=== PATIENT | female | born 1935 | race Caucasian/White ===

== ENCOUNTER 2017-07-06 16:15 | Emergency (ER) | payer MEDICARE, MEDICAID ==
[~2017-07-06] VITALS: Ht 165.1 cm; Wt 80.7 kg
[~2017-07-06 16:15] MED LIST: AMLO1CAP10 PO; ESOM40CA PO; INSU3INS6 SUBCUT
[2017-07-06 16:21] VITALS: BP 147/72
[2017-07-06] MEDS ORDERED: CEFTRIAXONE 1 G VIAL ONE (17:00)
[2017-07-06] MEDS ORDERED: DEXAMETHASONE SOD PHOSPHATE 10 MG/ML VIAL ONE (17:00)
[2017-07-06] MEDS ORDERED: DEXAMETHASONE SOD PHOSPHATE 10 MG/ML VIAL IV ONE (17:00)
[2017-07-06] MEDS ORDERED: CEFTRIAXONE 1 G VIAL IM ONE (17:00)
[2017-07-06] MEDS ORDERED: LIDOCAINE /MPF 1% VIAL 5 ML VIAL ONE (17:01)
== END 2017-07-06 17:09 | disposition home or self-care (01) ==
LOC: ER 16:18
DX: J03.90 Acute tonsillitis, unspecified (principal); E11.9 Type 2 diabetes mellitus without complications; I10 Essential (primary) hypertension; Z79.4 Long term (current) use of insulin; Z86.73 Personal history of transient ischemic attack (TIA), and cerebral infarction without residual deficits
CPT/HCPCS: 96372 ×2; 99284; A4606; J0696; J1100; J3490; Z7610

== ENCOUNTER 2017-07-22 10:11 | Emergency (ER) | payer MEDICARE, MEDICAID ==
[~2017-07-22] VITALS: Ht 162.6 cm; Wt 74.8 kg
--- NOTE | 2017-07-22 10:15 | NUR ---
AAOX3, BIB FAMILY C/O FEELING SICK, ON/OFF SOB ESPECIALLY DURING NIGHT TIME, FINISHED HER ANTIBIOTIC 3 DAYS AGO. RR IS EVEN AND UNLABORED WITH NAD NOTED. SKIN IS WARM AND DRY. AWAITING MD FOR EVAL.
--- NOTE | 2017-07-22 10:21 | NUR ---
DR MCCORMACK AT BS FOR EVAL.
[2017-07-22] MEDS ORDERED: DEXAMETHASONE SOD PHOSPHATE 10 MG/ML VIAL ONE (10:25)
[2017-07-22] MEDS ORDERED: IV NS 0.9% 500 ML BAG IV ONE (10:30)
[2017-07-22] MEDS ORDERED: DEXAMETHASONE SOD PHOSPHATE 10 MG/ML VIAL IV ONE (10:30)
[2017-07-22 10:43] LABS: BASOPHILS % (AUTO) 0.3 % (0.0-2.0); EOSINOPHILS # (AUTO) 0.3 /CMM (0.0-0.7); EOSINOPHILS % (AUTO) 3.2 % (0.0-6.0); HEMATOCRIT 39 % (33-45); HEMOGLOBIN 12.9 g/dL (11.5-14.8); LYMPHOCYTES # (AUTO) 2.1 /CMM (0.8-4.8); LYMPHOCYTES % (AUTO) 23.7 % (20.0-44.0); MEAN CORPUSCULAR HEMOGLOBIN 29 PG (26.0-33.0); MEAN CORPUSCULAR HGB CONC 34 g/dl (31.0-36.0); MEAN CORPUSCULAR VOLUME 86 fL (82-100); MONOCYTES # (AUTO) 0.6 /CMM (0.1-1.30); MONOCYTES % (AUTO) 7.1 % (2.0-12.0); NEUTROPHILS # (AUTO) 5.7 /CMM (1.8-8.9); NEUTROPHILS % (AUTO) 65.7 % (43.0-81.0); PLATELET COUNT (AUTO) 241 /CMM (150-450); RDW COEFFICIENT OF VARIATION 13.5 (11.5-15.0); RED BLOOD CELL COUNT(AUTO) 4.48 MIL/uL (4.0-5.2); WHITE BLOOD COUNT (AUTO) 8.7 K/uL (4.3-11.0)
[2017-07-22 10:47] LABS: APPEARANCE,URINE CLEAR (CLEAR); BILIRUBIN,URINE NEGATIVE (NEGATIVE); BLOOD, URINE TRACE-INTA Ery/uL (NEGATIVE); COLOR,URINE YELLOW (YELLOW); KETONES,URINE NEGATIVE (NEGATIVE); LEUKOCYTE ESTERASE ,URINE NEGATIVE (NEGATIVE); NITRITE, URINE NEGATIVE (NEGATIVE); PROTEIN,URINE 2+ mg/dl (NEGATIVE); UGLUCOSE TRACE mg/dL (NEGATIVE); UROBILINOGEN,URINE 0.2 EU/dL (0.2)
--- NOTE | 2017-07-22 10:51 | NUR ---
XRAY AT BS
[2017-07-22 10:53] LABS: CARBON DIOXIDE 30 mmol/L (21-32); CHLORIDE 101 mmol/L (98-107); CREATININE 0.9 mg/dL (0.6-1.3); GLUCOSE 194 mg/dL (74-106); POTASSIUM 3.5 mmol/L (3.5-5.1); SODIUM SERUM 140 mmol/L (136-145); UREA NITROGEN, BLOOD 14 mg/dL (7-18)
[2017-07-22 11:03] LABS: ALANINE AMINOTRANSFERASE 20 U/L (12-78); ALBUMIN 3.1 g/dL (3.4-5.0); ALKALINE PHOSPHATASE 80 U/L (46-116); ASPARTATE AMINOTRANSFERASE 17 U/L (15-37); BILIRUBIN,DIRECT 0.1 mg/dL (0.0-0.2); BILIRUBIN,TOTAL 0.6 mg/dL (0.2-1.0); LIPASE 82 U/L (73-393); TOTAL PROTEIN, SERUM 8.9 g/dL (6.4-8.2)
[2017-07-22 11:11] LABS: TROPONIN I < 0.017 ng/mL (0.00-0.056)
[2017-07-22 11:21] LABS: RBC,URINE 0-2 /HPF (0-2)
[2017-07-22 11:22] LABS: BACTERIA,URINE Rare /HPF (None Seen); SQUAMOUS EPITHELIAL CELL,UR Few /HPF (None Seen); YEAST,URINE Rare /HPF (None Seen)
[2017-07-22] MEDS ORDERED: AZITHROMYCIN 250 MG TABLET ONE (11:28)
[2017-07-22] MEDS ORDERED: AZITHROMYCIN 250 MG TABLET PO ONE (11:30)
--- NOTE | 2017-07-22 11:32 | NUR ---
IV removed. Catheter intact and site benign. Pressure and 4x4 applied to site. No bleeding noted.Patient discharged to home in stable condition. Written and verbal after care instructions given. Patient verbalizes understanding of instruction.
[2017-07-22 11:33] VITALS: BP 132/85
== END 2017-07-22 11:34 | disposition home or self-care (01) ==
LOC: ER 10:14
DX: R09.89 Other specified symptoms and signs involving the circulatory and respiratory systems (principal); R53.1 Weakness; I10 Essential (primary) hypertension; E11.9 Type 2 diabetes mellitus without complications; Z86.73 Personal history of transient ischemic attack (TIA), and cerebral infarction without residual deficits; Z79.4 Long term (current) use of insulin
CPT/HCPCS: 36415; 71045; 80048; 80076; 81001; 83690; 84484; 85025; 93005; 96374; 99285; A4606; J1100; J7040; 81000-TC; Z7610

== ENCOUNTER 2017-08-08 11:01 | Inpatient (IN) | payer MEDICARE, MEDICAID ==
[~2017-08-08] VITALS: Ht 154.9 cm; Wt 77.1 kg
--- NOTE | 2017-08-08 11:01 | NUR ---
BB RA102 FROM HOME C/O SEVERE APHASIA LAST KNOWN WELL 1010 AM. BS 317 IN FIELD. PLACED ON MONITOR. AWAITING MD ORDER
--- NOTE | 2017-08-08 11:07 | NUR ---
CODE STROKE ACTIVATED
--- NOTE | 2017-08-08 11:08 | NUR ---
PT TAKEN TO CT SCAN
--- NOTE | 2017-08-08 11:09 | NUR ---
CALLED [facility]'S TELESTROKE HOTLINE, SPOKE WITH PATRIZIA, PRESENTED PT, AWAITING CALLBACK FROM (NEUROLOGIST).
[2017-08-08 11:13] LABS: BASOPHILS # (AUTO) 0.3 /CMM (0.0-0.2); BASOPHILS % (AUTO) 3.6 % (0.0-2.0); EOSINOPHILS # (AUTO) 0.3 /CMM (0.0-0.7); EOSINOPHILS % (AUTO) 2.9 % (0.0-6.0); HEMATOCRIT 41 % (33-45); LYMPHOCYTES # (AUTO) 2.1 /CMM (0.8-4.8); LYMPHOCYTES % (AUTO) 22.7 % (20.0-44.0); MEAN CORPUSCULAR HEMOGLOBIN 29 PG (26.0-33.0); MEAN CORPUSCULAR HGB CONC 34 g/dl (31.0-36.0); MEAN CORPUSCULAR VOLUME 85 fL (82-100); MONOCYTES # (AUTO) 0.6 /CMM (0.1-1.30); MONOCYTES % (AUTO) 6.5 % (2.0-12.0); NEUTROPHILS # (AUTO) 5.8 /CMM (1.8-8.9); NEUTROPHILS % (AUTO) 64.3 % (43.0-81.0); PLATELET COUNT (AUTO) 209 /CMM (150-450); RDW COEFFICIENT OF VARIATION 12.7 (11.5-15.0); RED BLOOD CELL COUNT(AUTO) 4.83 MIL/uL (4.0-5.2); WHITE BLOOD COUNT (AUTO) 9.1 K/uL (4.3-11.0)
--- NOTE | 2017-08-08 11:13 | NUR ---
PT BACK FROM CT
[2017-08-08] MEDS ORDERED: IV NS 0.9% 250 ML IV ONE (11:17)
[2017-08-08] MEDS ORDERED: CT SWABBABLE VALVE TRANS SET 1 EA INFUS.SET MC ONE (11:17)
[2017-08-08] MEDS ORDERED: IOHEXOL-350 100 ML VIAL IV ONE (11:17)
[2017-08-08 11:22] LABS: CALCIUM, SERUM 9.1 mg/dL (8.5-10.1); CARBON DIOXIDE 29 mmol/L (21-32); CHLORIDE 100 mmol/L (98-107); CREATININE 1.1 mg/dL (0.6-1.3); GLUCOSE 335 mg/dL (74-106); POTASSIUM 3.9 mmol/L (3.5-5.1); SODIUM SERUM 137 mmol/L (136-145); UREA NITROGEN, BLOOD 17 mg/dL (7-18)
[2017-08-08 11:26] LABS: INR 0.95 (0.85-1.15)
[2017-08-08 11:30] LABS: CHOLESTEROL 167 mg/dL (<200); HDL CHOLESTEROL 47 mg/dL (40-60); LDL 98 mg/dL (0-99); TRIGLYCERIDES 224 mg/dL (30-150)
[2017-08-08] MEDS ORDERED: ALTEPLASE 100 MG/VIAL VIAL IV ONE (11:30)
[2017-08-08 11:38] LABS: TROPONIN I < 0.017 ng/mL (0.00-0.056)
[2017-08-08] MEDS ORDERED: GLIM4TAB2 PO (11:53)
[2017-08-08] MEDS ORDERED: LEVO50TA8 PO (11:53)
[2017-08-08] MEDS ORDERED: CITA20TA11 PO (11:53)
[2017-08-08] MEDS ORDERED: ERGO500014 PO (11:53)
[2017-08-08] MEDS ORDERED: MECL-102 PO (11:53)
--- NOTE | 2017-08-08 11:58 | NUR ---
PAGED [facility] --- LIQUOR GALLERY OPERATOR IS DR GOSS.
[2017-08-08] MEDS ORDERED: METO-357 PO (12:15)
--- NOTE | 2017-08-08 12:37 | NUR ---
TELE 321-4
[2017-08-08] MEDS ORDERED: HYDROCODONE/APAP 5/325MG 1 EACH TABLET PO PRN (13:00)
[2017-08-08] MEDS ORDERED: ACETAMINOPHEN 325 MG TABLET PO PRN (13:00)
[2017-08-08] MEDS ORDERED: CITALOPRAM HYDROBROMIDE 20 MG TABLET PO PRN (13:00)
[2017-08-08] MEDS ORDERED: MAGNESIUM HYDROXIDE 30 ML UDC PO PRN (13:00)
[2017-08-08] MEDS ORDERED: MAG HYDROX/AL HYDROX/SIMETH 30 ML UDC PO PRN (13:00)
[2017-08-08] MEDS ORDERED: Z GUARD REMEDY 2 OZ OINT TP PRN (13:00)
[2017-08-08] MEDS ORDERED: MECLIZINE HCL 25 MG TABLET PO PRN (13:00)
[2017-08-08] MEDS ORDERED: ONDANSETRON HCL/PF 4 MG/2 ML VIAL IVP PRN (13:00)
[2017-08-08] MEDS ORDERED: ZOLPIDEM TARTRATE 5 MG TABLET PO PRN (13:00)
[2017-08-08 13:20] VITALS: BP 144/75
--- NOTE | 2017-08-08 13:20 | NUR ---
PATIENT ARRIVED TO UNIT AND PLACED IN ROOM 321-1 VITAL SIGNS WITHIN NORMAL LIMIT - REFER TO FLOWSHEET
[2017-08-08] MEDS: ASPIRIN EC 325 MG TABLET.DR PO SCH (13:23)
--- NOTE | 2017-08-08 15:32 | NUR ---
RN ADMITTING NOTES PATIENT ARRIVED TO UNIT, ROOM 321-1. VITAL SIGNS ARE STABLE. NPO EXCEPT MEDS. PLACED ON TELE MONITOR. FAMILY AT BEDSIDE. ARMENIA SPEAKING. ALERT AND ORIENTED TO NAME, PLACE AND TIME. NO SIGNS AND SYMPTOMS OF DISTRESS. DENIED PAIN. BED IN LOW POSITION, LOCKED AND TWO SIDE RAILS ARE UP. CALL LIGHT WITHIN REACH FOR SAFETY. WILL CONTINUE TO MONITOR AND ASSESS PATIENT
[2017-08-08 16:00] VITALS: BP 156/84
[2017-08-08] MEDS: INSULIN GLARGINE, 100 UNIT/ML CARTRIDGE SQ SCH (17:00)
[2017-08-08] MEDS: BLOOD SUGAR DIAGNOSTIC 1 EACH STRIP IN SCH ×3 (17:06→23:36)
--- NOTE | 2017-08-08 18:25 | NUR ---
RN CLOSING NOTES PATIENT IS IN BED, ALERT AND ORIENTED TO NAME, PLACE AND TIME. FIJIAN SPEAKING. NO SIGNS AND SYMPTOMS OF DISTRESS. PENDING DR MCMULLEN CONSULT. ALL NURSING CARE ANTICIPATED AND ATTENDED FOR. BED IN LOW POSITION, LOCKED AND TWO SIDE RAILS ARE UP FOR SAFETY. CALL LIGHT WITHIN REACH. NO CHANGES DURING THE SHIFT. WILL ENDORSE TO SILK OPENER NURSE.
--- NOTE | 2017-08-08 19:30 | NUR ---
SILVICULTURE FORESTER OPENING NOTES: PATIENT IN BED,AOX4, MOROCCAN SPEAKING, DAUGHTER AT BEDSIDE DURING THIS TIME OF ASSESSMENT TO HELP TRANSLATE. ON ROOM AIR, BREATHING EVEN AND UNLABORED. APPEARS CALM AND IN NO DISTRESS. DENIES PAIN AT THIS TIME. PATIENT'S PUPILS ARE EQUALLY ROUND AND REACTIVE TO LIGHT, FREDY EXTREMITIES BOTH WITH EQUAL STRENGTH, NO ARM DRIFT NOTED. NO OBVIOUS FACIAL DROOP WHEN ASKED TO SMILE. PATIENT APPEARS TO BE ABLE TO SPEAK CLEARLY, NO SLURRING OF SPEECH NOTED. PIV OVER LAC G 20 INTACT AND PATENT TO FLUSH. PROVIDED FOR COMFORT AND SAFETY. BED IN LOWEST AND LOCKED POSITION, SIDERAILS UP X 3, CALL LIGHT WITHIN REACH. WILL CONT TO MONITOR.
[2017-08-08 20:00] VITALS: BP 152/72
--- NOTE | 2017-08-08 21:53 | NUR ---
RN NOTES: BLOOD SUGAR CHECKED AT 278 MG/DL, NO INSULIN COVERAGE ORDERED AT THIS TIME. WILL CONT TO MONITOR BS IN AM. PER MD NOTE, WILL AWAIT A1C RESULT. HGBA1C ORDERED FOR AM.
--- NOTE | 2017-08-08 22:12 | NUR ---
RN NOTES: SPOKE TO YULY MENDOZA NP. EXPLAINED PATIENT'S BLOOD SUGAR HAS BEEN ELEVATED SINCE UPON ADMISSION, THAT DR GOSS HAS SEEN PT THIS AM, WITH DX OF TIA , AND ONLY ACHS ACCUCHECKS ARE BEING DONE, NO REGULAR INSULIN COVERAGE BEING GIVEN. BLOCK HACKER ORDERED FOR MILD SS WITH REGULAR INSULIN. NOTED AND CARRIED OUT.
[2017-08-08] MEDS ORDERED: DEXTROSE 50%-WATER 50 ML DISP.SYRIN IV PRN (22:30)
[2017-08-08] MEDS ORDERED: INSULIN REGULAR, HUMAN 100 UNIT/ML 3 ML VIAL ONE (22:31)
--- NOTE | 2017-08-08 23:30 | NUR ---
RN NOTES: EXPLAINED TO PATIENT THAT BLOOD SUGAR HAS BEEN HIGH AND THAT FIELD COURT RESEARCHER HAS ORDERED FOR MILD INSULIN COVERAGE. PATIENT REFUSED, WANTS TO TAKE IT IN AM. RISKS AND BENEFITS EXPLAINED, PT STILL REFUSING. WILL CONT TO MONITOR.
[2017-08-08] MEDS: INSULIN REGULAR, HUMAN 100 UNIT/ML 3 ML VIAL SQ PRN (23:37)
[2017-08-09] VITALS (7 sets, daily range): BP systolic 112–153; BP diastolic 57–74
--- NOTE | 2017-08-09 04:20 | NUR ---
RN NOTES: PATIENT IN HALLWAY, ASKING FOR SODA. WHEN ASKED WHAT KIND, SHE SAID, "WHAT IS TAKING YOU SO LONG?" PATIENT THEN CHANGED MIND AND ASKED FOR WATER. WHEN NEW PITCHER WAS GIVEN, PATIENT REFUSED, SAYING "I DON'T TRUST YOU." TRIED TO HAVE BATCH PLANT OPERATOR GIVE IT, PT PLACED PITCHER ON FLOOR IN FRONT OF ROOM.
[2017-08-09] MEDS: LEVOTHYROXINE SODIUM 50 MCG TABLET PO SCH (05:37)
--- NOTE | 2017-08-09 06:30 | NUR ---
RN NOTES: BLOOD SUGAR CHECKED AT 321 MG/DL. ADMINISTERED 8 UNITS REGULAR INSULIN PER SCALE SQ. WILL CONT TO MONITOR.
[2017-08-09] MEDS: INSULIN REGULAR, HUMAN 100 UNIT/ML 3 ML VIAL SQ PRN ×4 (06:32→21:29)
[2017-08-09] MEDS: PANTOPRAZOLE 40 MG TABLET.DR PO SCH (06:37)
[2017-08-09] MEDS: BLOOD SUGAR DIAGNOSTIC 1 EACH STRIP IN SCH ×4 (06:38→21:27)
--- NOTE | 2017-08-09 06:52 | NUR ---
CAREERS ADVISER CLOSING NOTES: PATIENT IN BED, AOX4, ON ROOM AIR, BREATHING EVEN AND UNLABORED. APPEARS CALM AND IN NO DISTRESS. ON TELE MONITORING: SR 70S WITH BBB. DUE MEDS GIVEN. PROVIDED FOR COMFORT AND SAFETY. BED IN LOWEST AND LOCKED POSITION, SIDERAILS UP X 3, CALL LIGHT WITHIN REACH. WILL ENDORSE TO AM RN FOR YOSEF.
[2017-08-09 07:28] LABS: BASOPHILS % (AUTO) 0.5 % (0.0-2.0); EOSINOPHILS # (AUTO) 0.2 /CMM (0.0-0.7); EOSINOPHILS % (AUTO) 3.2 % (0.0-6.0); HEMATOCRIT 37 % (33-45); HEMOGLOBIN 12.5 g/dL (11.5-14.8); LYMPHOCYTES # (AUTO) 1.5 /CMM (0.8-4.8); LYMPHOCYTES % (AUTO) 20.5 % (20.0-44.0); MEAN CORPUSCULAR HEMOGLOBIN 29 PG (26.0-33.0); MEAN CORPUSCULAR HGB CONC 34 g/dl (31.0-36.0); MEAN CORPUSCULAR VOLUME 86 fL (82-100); MONOCYTES # (AUTO) 0.4 /CMM (0.1-1.30); MONOCYTES % (AUTO) 5.8 % (2.0-12.0); NEUTROPHILS # (AUTO) 4.9 /CMM (1.8-8.9); PLATELET COUNT (AUTO) 182 /CMM (150-450); RDW COEFFICIENT OF VARIATION 13.3 (11.5-15.0); RED BLOOD CELL COUNT(AUTO) 4.29 MIL/uL (4.0-5.2); WHITE BLOOD COUNT (AUTO) 7.1 K/uL (4.3-11.0)
--- NOTE | 2017-08-09 07:30 | NUR ---
DEEP SUBMERGENCE VEHICLE CREWMEMBER NOTES PT IN BED, AWAKE, ALERT AND ORIENTED, SPEAKS LIBERIAN, DENIES PAIN, SPEECH IS CLEAR, NO FACIAL DROOP NOTED, ABLE TO MOVE BOTH UPPER AND LOWER EXTREMITIES, BREATHING PATTERN NORMAL, CALL LIGHT WITHIN REACH, KEPT OXYACETYLENE TORCH OPERATOR BED.
[2017-08-09 07:41] LABS: CALCIUM, SERUM 8.5 mg/dL (8.5-10.1); CARBON DIOXIDE 28 mmol/L (21-32); CHLORIDE 101 mmol/L (98-107); CREATININE 0.9 mg/dL (0.6-1.3); GLUCOSE 305 mg/dL (74-106); POTASSIUM 3.9 mmol/L (3.5-5.1); SODIUM SERUM 135 mmol/L (136-145); UREA NITROGEN, BLOOD 15 mg/dL (7-18)
[2017-08-09 07:44] LABS: MAGNESIUM 1.6 mg/dL (1.8-2.4); PHOSPHORUS 3.2 mg/dL (2.5-4.9)
[2017-08-09 07:56] LABS: THYROID STIMULATING HORMONE 3.636 uIU/mL (0.358-3.74)
[2017-08-09] MEDS: GLIMEPIRIDE 4 MG TABLET PO SCH (08:44)
[2017-08-09] MEDS: METOPROLOL SUCCINATE 50 MG TAB.SR.24H PO SCH (08:45)
[2017-08-09] MEDS: ASPIRIN EC 325 MG TABLET.DR PO SCH (08:46)
[2017-08-09] MEDS: AMLODIPINE BESYLATE 10 MG TABLET PO SCH (08:46)
[2017-08-09] MEDS: BENAZEPRIL HCL 20 MG TABLET PO SCH (08:46)
[2017-08-09] MEDS: INSULIN GLARGINE, 100 UNIT/ML CARTRIDGE SQ SCH ×3 (08:56→17:34)
[2017-08-09] MEDS: Magnesium 1GM/D5W 100ML PREMIX 100 ML IV SCH ×2 (11:33→13:52)
--- NOTE | 2017-08-09 11:51 | NUR ---
RN MS NOTES PT AWAKE, ALERT AND ORIENTED, SITTING IN HER CHAIR, NO COMPLAINT OFPAIN, NOT IN DISTRESS, PT SEEN BY DR. MCMULLEN, COMPLETED MRI AND MRA TESTS ORDERED BY DR. MCMULLEN, PT SEEN BY SPEECH THERAPIST, NO SWALLOWING PROBLEM NOTED, CALL LIGHT WITHIN REACH, NEEDS ATTENDED.
[2017-08-09] MEDS ORDERED: BLOOD SUGAR DIAGNOSTIC 1 EACH STRIP IN SCH ×2 (12:00)
--- NOTE | 2017-08-09 14:45 | NUR ---
Social service consult requested by Dr. Baez for possible stroke. Pt. is a 81 year old female who lives at home with her grandson Binu. Binu's contact is . Pt. is alert and oriented x 3. Pt. is Latvian speaking. Family was bedside to assist in translation. Pt. needs assistance with her ADL's. Pt. is ambulatory, however has a four wheeled walker at home and a shower chair and grab bars. Pt. plans to return back home once medically cleared. Pt's Head and neck CTA showed, "1 mm focus of contrast adjacent to the right vertebral artery at the level of C4. No other social service needs are requested at this time. SW is available, if needed.
[2017-08-09 17:21] LABS: APPEARANCE,URINE CLEAR (CLEAR); BILIRUBIN,URINE NEGATIVE (NEGATIVE); BLOOD, URINE TRACE Ery/uL (NEGATIVE); COLOR,URINE YELLOW (YELLOW); KETONES,URINE NEGATIVE (NEGATIVE); LEUKOCYTE ESTERASE ,URINE 1+ (NEGATIVE); NITRITE, URINE NEGATIVE (NEGATIVE); PH,URINE 5.5 (5.0-8.0); PROTEIN,URINE 2+ mg/dl (NEGATIVE); UGLUCOSE 1+ mg/dL (NEGATIVE); UROBILINOGEN,URINE 0.2 EU/dL (0.2)
[2017-08-09 17:37] LABS: BACTERIA,URINE Few /HPF (None Seen); RBC,URINE 0-2 /HPF (0-2); SQUAMOUS EPITHELIAL CELL,UR Few /HPF (None Seen)
--- NOTE | 2017-08-09 18:26 | NUR ---
RN MS NOTES PT IN BED, AWAKE, ALERT AND ORIENTED, NO COMPLAINT OF PAIN, NOT IN DISTRESS, CALL LIGHT WITHIN REACH, PT SEEN BY PT, OT AND ST, TOLERATED EXERCISES WELL, COMPLIANT WITH CARE, ASSISTED WITH NEEDS, PLAN OF CARE DISCUSSED WITH PT AND DAUGHTER KEZIA, VERBALIZED UNDERSTANDING.
--- NOTE | 2017-08-09 19:20 | NUR ---
MS RN NOTES: RECEIVED PATIENT IN BED, RESTING COMFORTABLE, AROUSES EASILY, AOX4, KUWAITI SPEAKING. ON ROOM AIR, BREATHING EVEN AND UNLABORED. APPEARS CALM AND IN NO DISTRESS. NO C/O PAIN OR DISCOMFORT AT THIS TIME. PT ABLE TO RAISE HER BOTH ARMS , EQUALLY. NO ARM DRIFT NOTED. NO OBVIOUS FACIAL DROOP WHEN ASKED TO SMILE. PATIENT APPEARS TO BE ABLE TO SPEAK CLEARLY, NO SLURRED OF SPEECH NOTED. IV SITE ON LEFT HAND AND LEFT AC INTACT AND PATENT TO FLUSH.NO S/S OF HYPO/ HYPERGLYCEMIA NOTED. BED IN LOWEST AND LOCKED POSITION, SIDE RAILS UP X 3, CALL LIGHT WITHIN REACH. SAFETY PRECAUTIONS OBSERVED. WILL CONT TO MONITOR.
[2017-08-09] MEDS ORDERED: ATORVASTATIN 10 MG TABLET PO SCH (22:00)
[2017-08-10] MEDS: BLOOD SUGAR DIAGNOSTIC 1 EACH STRIP IN SCH (05:38)
[2017-08-10] MEDS: LEVOTHYROXINE SODIUM 50 MCG TABLET PO SCH (06:01)
[2017-08-10] MEDS: INSULIN REGULAR, HUMAN 100 UNIT/ML 3 ML VIAL SQ PRN (06:23)
[2017-08-10] MEDS: PANTOPRAZOLE 40 MG TABLET.DR PO SCH (06:34)
--- NOTE | 2017-08-10 06:50 | NUR ---
MS RN NOTES: PATIENT IN BED, AWAKE, AOX4, MACEDONIAN SPEAKING. ON ROOM AIR, BREATHING EVEN AND UNLABORED. APPEARS CALM AND IN NO DISTRESS. NO C/O PAIN OR DISCOMFORT AT THIS TIME. PT ABLE TO RAISE HER BOTH ARMS EQUALLY AND WITHOUT DIFFICULTY. NO OBVIOUS FACIAL DROOP WHEN ASKED TO SMILE. NO SLURRED OF SPEECH NOTED. IV SITE ON LEFT HAND AND LEFT AC INTACT AND PATENT TO FLUSH. NO S/S OF HYPO/ HYPERGLYCEMIA NOTED. BED IN LOWEST AND LOCKED POSITION, SIDE RAILS UP X 3, CALL LIGHT WITHIN REACH. SAFETY PRECAUTIONS OBSERVED. WILL ENDORSE TO NEXT SHIFT FOR YOSEF.
--- NOTE | 2017-08-10 07:42 | NUR ---
MS/RN OPENING NOTE PATIENT IN BED IN STABLE CONDITION. A/O X 4, FILIPINO SPEAKING. NO SIGNS OF ACUTE DISTRESS. NO COMPLAIN OF PAIN OR DISCOMFORT. ALL NEEDS ATTENDED TO. CALL LIGHT WITHIN REACH. WILL CONTINUE TO MONITOR TO ENSURE SAFETY.
[2017-08-10 08:00] VITALS: BP 154/76
[2017-08-10 08:40] VITALS: BP 154/76
[2017-08-10] MEDS: GLIMEPIRIDE 4 MG TABLET PO SCH (08:40)
[2017-08-10] MEDS: BENAZEPRIL HCL 20 MG TABLET PO SCH (08:40)
[2017-08-10] MEDS: ASPIRIN EC 325 MG TABLET.DR PO SCH (08:40)
[2017-08-10] MEDS: AMLODIPINE BESYLATE 10 MG TABLET PO SCH (08:40)
[2017-08-10] MEDS: METOPROLOL SUCCINATE 50 MG TAB.SR.24H PO SCH (08:40)
[2017-08-10] MEDS: INSULIN GLARGINE, 100 UNIT/ML CARTRIDGE SQ SCH (08:41)
[2017-08-10] MEDS ORDERED: BENA20TA2 PO (10:36)
[2017-08-10] MEDS ORDERED: ATOR10TA PO (10:36)
[2017-08-10] MEDS ORDERED: ASPI-1169 PO (10:44)
--- NOTE | 2017-08-10 11:26 | NUR ---
MS/NUTRITIONAL SERVICES HOST PATIENT DISCHARGE HOME IN STABLE CONDITION. A/O X 3. NO SIGNS OF ACUTE DISTRESS. NO COMPLAIN OF PAIN OR DISCOMFORT. DISCHARGE INSTRUCTIONS AND TEACHINGS PROVIDED TO PATIENT AND FORMSTONE FITTER. VERBALIZED UNDERSTANDING AND ALSO MADE AWARE TO FOLLOW UP WITH PRIMARY PHYSICIAN WITHIN A WEEK. WALKER PROVIDED FOR AMBULATION ASSIST. TOLERATED WELL. NAME BAND AND IV LINE REMOVED. ALL NEEDS ATTENDED TO. LEFT VIA PRIVATE CAR ACCOMPANIED BY DAUGHTERS.
[2017-08-11] MEDS ORDERED: ERGOCALCIFEROL (VITAMIN D 2) 50,000 UNIT CAPSULE PO SCH (07:00)
== END 2017-08-10 11:32 | disposition home or self-care (01) | DRG 69 ==
LOC: ER 11:02 → TELE 12:49 → MED 08-09 08:14
PROVIDERS: ADMIT Family Medicine; ATTEND Family Medicine
DX: G45.9 Transient cerebral ischemic attack, unspecified (principal); G93.40 Encephalopathy, unspecified; E11.65 Type 2 diabetes mellitus with hyperglycemia; G40.209 Localization-related (focal) (partial) symptomatic epilepsy and epileptic syndromes with complex partial seizures, not intractable, without status epilepticus; F03.90 Unspecified dementia, unspecified severity, without behavioral disturbance, psychotic disturbance, mood disturbance, and anxiety; E03.9 Hypothyroidism, unspecified; E55.9 Vitamin D deficiency, unspecified; Z86.73 Personal history of transient ischemic attack (TIA), and cerebral infarction without residual deficits; Z83.3 Family history of diabetes mellitus; I10 Essential (primary) hypertension; J45.909 Unspecified asthma, uncomplicated; H26.9 Unspecified cataract; E66.9 Obesity, unspecified; F32.9 Major depressive disorder, single episode, unspecified; Z68.32 Body mass index [BMI] 32.0-32.9, adult; I70.0 Atherosclerosis of aorta
CPT/HCPCS: 36415; 70450-TC; 70492; 70496-TC; 70498-TC; 70551-TC; 71045-TC; 80048-TC; 80061-TC; 80305; 81000-TC; 82306; 82962-TC; 83735-TC; 83880; 84100-TC; 84439-TC; 84443-TC; 84484-TC; 85025-TC; 85652-TC; 85730-TC; 87081-TC; 87086-TC; 92611-TC; 93307-TC; 95819-TC; A4606; J1815; J3475; J7050; Q9967; Z7610

== ENCOUNTER 2017-08-20 12:38 | Outpatient (CLI) | payer MEDICARE, MEDICAID ==
[2017-08-20 12:37] VITALS: BP 129/69
[~2017-08-20 12:38] MED LIST changes: +ASPI-1169 PO; +ATOR10TA PO; +BENA20TA9 PO; +CITA20TA16 PO; +ERGO500014 PO; +GLIM4TAB2 PO; +LEVO50TA8 PO; +MECL-102 PO; +METO-357 PO
== END 2017-08-20 23:59 | disposition home or self-care (01) ==
LOC: EDBD → MSC 12:38
PROVIDERS: ATTEND Internal Medicine
DX: R53.1 Weakness (principal); I10 Essential (primary) hypertension; E11.9 Type 2 diabetes mellitus without complications; M19.90 Unspecified osteoarthritis, unspecified site; J45.909 Unspecified asthma, uncomplicated; E66.9 Obesity, unspecified; Z86.73 Personal history of transient ischemic attack (TIA), and cerebral infarction without residual deficits; Z79.4 Long term (current) use of insulin; Z79.82 Long term (current) use of aspirin

== ENCOUNTER 2017-11-20 16:28 | Inpatient (IN) | payer MEDICARE, MEDICAID ==
[~2017-11-20] VITALS: Ht 162.6 cm; Wt 77.1 kg
--- NOTE | 2017-11-20 16:28 | NUR ---
[id number] FROM HOME; PER FAMILY PT IS CONFUSED AND HAD EPISODE OF SLURRED SPEECH. LAST TIME PT WAS SEEN NORMAL- 1540.N BS-125. PT IS [place] SPEAKING ONLY. GOWNED AND PLACED ON CONTINOUS MONITORING. VSS. RR EVEN AND UNLABORED. SKIN IS WARM AND NON DIAPHROETIC. WILL CONT TO MONITOR
--- NOTE | 2017-11-20 16:39 | NUR ---
CODE STROKE CALLED
--- NOTE | 2017-11-20 16:39 | NUR ---
ACTIVATED TELESTROKE WITH [facility] IS DR. BRASWELL
--- NOTE | 2017-11-20 16:40 | NUR ---
PT TAKEN TO CT SCAN.
--- NOTE | 2017-11-20 16:49 | NUR ---
PAGED DR. BRASWELL AGAIN
[2017-11-20] MEDS ORDERED: IOHEXOL-350 100 ML VIAL IV ONE (16:53)
[2017-11-20] MEDS ORDERED: IV NS 0.9% 250 ML IV ONE (16:53)
[2017-11-20 16:57] LABS: BASOPHILS # (AUTO) 0.1 /CMM (0.0-0.2); EOSINOPHILS % (AUTO) 3.5 % (0.0-6.0); HEMATOCRIT 37 % (33-45); HEMOGLOBIN 12.6 g/dL (11.5-14.8); LYMPHOCYTES # (AUTO) 3.2 /CMM (0.8-4.8); LYMPHOCYTES % (AUTO) 34.1 % (20.0-44.0); MEAN CORPUSCULAR HEMOGLOBIN 30 PG (26.0-33.0); MEAN CORPUSCULAR HGB CONC 34 g/dl (31.0-36.0); MEAN CORPUSCULAR VOLUME 89 fL (82-100); MONOCYTES # (AUTO) 0.8 /CMM (0.1-1.30); MONOCYTES % (AUTO) 8.5 % (2.0-12.0); NEUTROPHILS % (AUTO) 52.9 % (43.0-81.0); PLATELET COUNT (AUTO) 187 /CMM (150-450); RDW COEFFICIENT OF VARIATION 13.4 (11.5-15.0); RED BLOOD CELL COUNT(AUTO) 4.19 MIL/uL (4.0-5.2); WHITE BLOOD COUNT (AUTO) 9.4 K/uL (4.3-11.0)
--- NOTE | 2017-11-20 16:57 | NUR ---
RADIOLOGIST SPEAKING WITH DR REID
[2017-11-20 17:07] LABS: CALCIUM, SERUM 9.1 mg/dL (8.5-10.1); CARBON DIOXIDE 29 mmol/L (21-32); CHLORIDE 104 mmol/L (98-107); CREATININE 1.2 mg/dL (0.6-1.3); GLUCOSE 122 mg/dL (74-106); POTASSIUM 4.5 mmol/L (3.5-5.1); SODIUM SERUM 140 mmol/L (136-145); UREA NITROGEN, BLOOD 26 mg/dL (7-18)
[2017-11-20 17:16] LABS: CHOLESTEROL 170 mg/dL (<200); HDL CHOLESTEROL 42 mg/dL (40-60); LDL 92 mg/dL (0-99); TRIGLYCERIDES 296 mg/dL (30-150)
[2017-11-20 17:18] LABS: INR 0.94 (0.87-1.13)
[2017-11-20 17:21] LABS: TROPONIN I < 0.017 ng/mL (0.00-0.056)
[2017-11-20 17:56] LABS: APPEARANCE,URINE SL CLOUDY (CLEAR); BILIRUBIN,URINE NEGATIVE (NEGATIVE); BLOOD, URINE 2+ Ery/uL (NEGATIVE); COLOR,URINE YELLOW (YELLOW); KETONES,URINE NEGATIVE (NEGATIVE); LEUKOCYTE ESTERASE ,URINE 2+ (NEGATIVE); NITRITE, URINE NEGATIVE (NEGATIVE); PROTEIN,URINE 2+ mg/dl (NEGATIVE); UGLUCOSE 1+ mg/dL (NEGATIVE); UROBILINOGEN,URINE 0.2 EU/dL (0.2)
--- NOTE | 2017-11-20 18:22 | NUR ---
CALLED NURSE SUP FOR TELE BED
[2017-11-20 18:29] LABS: SQUAMOUS EPITHELIAL CELL,UR Few /HPF (None Seen)
[2017-11-20] MEDS ORDERED: LEVO25TA9 PO (18:30)
[2017-11-20] MEDS ORDERED: FAMO40TA7 PO (18:30)
[2017-11-20] MEDS ORDERED: ASPI-1169 PO (18:30)
[2017-11-20] MEDS ORDERED: LINA290C PO (18:30)
[2017-11-20] MEDS ORDERED: DEXL60CA3 PO (18:30)
[2017-11-20] MEDS ORDERED: FENO134C PO (18:30)
[2017-11-20] MEDS ORDERED: DONE5TAB34 PO (18:30)
[2017-11-20 18:31] LABS: BACTERIA,URINE Few /HPF (None Seen); WBC,URINE 51-80 /HPF (0-3)
--- NOTE | 2017-11-20 19:16 | NUR ---
REPORT GIVEN TO KIERSTEN MEHTA FOR YOSEF TELE 304
--- NOTE | 2017-11-20 19:20 | NUR ---
RN ADMITTING TELE NOTES RECEIVED PATIENT VIA GURNEY , AWAKE ALERT AND ORIENTED X 4, POLISH SPEAKING , BUT ALSO ABLE TO COMMUNICATE AND CARRY ON CONVERSATION IN CITIZEN OF [place], FAMILY AT BEDSIDE WHOM ALSO MADE ME AWARE SHE UNDERSTANDS [place]IZEN [place]. RESPIRATIONS EVEN AND UNLABORED WITH EQUAL RISE AND FALL OF CHEST.NO RESPIRATORY DISTRESS PRESENT, BATHROOM OFFERED PATIENT WAS ABLE TO WALK TO THE BATHROOM WITH ASSISTANCE, NOTED STEADY BUT ALSO NOTED FORGETS LIMITATIONS, DENIES ANY PAIN OR DISCOMFORT AT THIS TIME, NO FACIAL DROOPING, NO ARM WEAKNESS , NO SPEECH DIFFICULTY NOTED AT THIS TIME, ABLE TO RESPOND WITHOUT DIFFICULTIES IN SPEECH.DENIES ANY FEELINGS OF NUMBNESS AT THIS TIME.ON SENIOR ACCOUNTANT ANALYST SR 85 WITH BBB. BODY ASSESSMENT DONE NOTE LEFT AND RIGHT BREASTFOLD REDNESS AND SCATTERED DRY SCABS TO RIGHT POSTERIOR BACK, PICTURES TAKEN PLACED IN CHART, IV SITE TO RIGHT HAND #20 AND LEFT AC #20, BOTH INTACT AND PATENT, NO REDNESS NO INFILTRATION PRESENT,DENIES PAIN TO IV SITES.ORIENTED TO STAFF, ROOM AND CALL LIGHT, SAFETY AND FALL PRECAUTIONS RENDERED, LOW BED, CALL ALARM IN PLACE, CALL LIGHT KEPT WITHIN REACH, GOWN AND PERINEAL CARE PROVIDED,FLUIDS OFFERED TOLERATED, NO DIFFICULTIES NOTED UPON SWALLOWING.ALL NEEDS ATTENDED AT THIS TIME, PATIENT REMAINS COMFORTABLE WILL CONTINUE TO MONITOR.
[2017-11-20 20:00] VITALS: BP 149/83
[2017-11-20 20:00] LABS: INR 0.95 (0.87-1.13)
[2017-11-20] MEDS ORDERED: INSULIN REGULAR, HUMAN 100 UNIT/ML 3 ML VIAL SQ PRN (20:00)
[2017-11-20] MEDS ORDERED: DEXTROSE 50%-WATER 50 ML DISP.SYRIN IV PRN (20:00)
[2017-11-20] MEDS ORDERED: CEFTRIAXONE 1 G in IV NS 0.9% 50 ML IV SCH (20:00)
[2017-11-20 20:02] LABS: THYROID STIMULATING HORMONE 4.809 uIU/mL (0.358-3.74)
[2017-11-20 20:30] VITALS: BP 149/83
--- NOTE | 2017-11-20 20:57 | NUR ---
turner splitter machine operator notes received iv antibiotic rocephin from pharmacy at this time, will administer as ordered
[2017-11-20] MEDS ORDERED: BLOOD SUGAR DIAGNOSTIC 1 EACH STRIP IN SCH ×2 (22:00)
[2017-11-20] MEDS ORDERED: INSULIN GLARGINE, 100 UNIT/ML CARTRIDGE SQ SCH (22:00)
[2017-11-20] MEDS ORDERED: SIMVASTATIN 20 MG TABLET PO SCH (22:00)
--- NOTE | 2017-11-20 22:39 | NUR ---
welder journeyman notes blood sugar 161 patient states " i have lantus at home" patient refused lantus at this time states " i dont want, it will go low fast". will continue to monitor.
[2017-11-21] VITALS: BP 135/61
[2017-11-21] MEDS: BLOOD SUGAR DIAGNOSTIC 1 EACH STRIP IN SCH ×3 (00:31→11:39)
--- NOTE | 2017-11-21 00:37 | NUR ---
AUTO SERVICE ADVISOR NOTES BLOOD SUGAR 145 PATIENT REFUSED COVERAGE.
[2017-11-21 01:15] VITALS: BP 135/61
[2017-11-21 04:00] VITALS: BP 147/64
[2017-11-21 04:24] VITALS: BP 147/64
--- NOTE | 2017-11-21 05:48 | NUR ---
college intern notes blood sugar 135 patient refused insulin
[2017-11-21 06:23] LABS: BASOPHILS % (AUTO) 0.3 % (0.0-2.0); EOSINOPHILS % (AUTO) 3.3 % (0.0-6.0); HEMATOCRIT 37 % (33-45); HEMOGLOBIN 12.6 g/dL (11.5-14.8); LYMPHOCYTES # (AUTO) 1.9 /CMM (0.8-4.8); LYMPHOCYTES % (AUTO) 23.3 % (20.0-44.0); MEAN CORPUSCULAR HEMOGLOBIN 30 PG (26.0-33.0); MEAN CORPUSCULAR HGB CONC 34 g/dl (31.0-36.0); MEAN CORPUSCULAR VOLUME 89 fL (82-100); MONOCYTES # (AUTO) 0.6 /CMM (0.1-1.30); MONOCYTES % (AUTO) 7.1 % (2.0-12.0); NEUTROPHILS # (AUTO) 5.3 /CMM (1.8-8.9); PLATELET COUNT (AUTO) 161 /CMM (150-450); RDW COEFFICIENT OF VARIATION 13.4 (11.5-15.0); RED BLOOD CELL COUNT(AUTO) 4.19 MIL/uL (4.0-5.2)
[2017-11-21 06:28] LABS: CHOLESTEROL 167 mg/dL (<200); HDL CHOLESTEROL 37 mg/dL (40-60); LDL 95 mg/dL (0-99); TRIGLYCERIDES 242 mg/dL (30-150)
[2017-11-21 06:37] LABS: CALCIUM, SERUM 8.8 mg/dL (8.5-10.1); CARBON DIOXIDE 29 mmol/L (21-32); CHLORIDE 103 mmol/L (98-107); CREATININE 1.1 mg/dL (0.6-1.3); GLUCOSE 136 mg/dL (74-106); POTASSIUM 4.2 mmol/L (3.5-5.1); SODIUM SERUM 138 mmol/L (136-145); UREA NITROGEN, BLOOD 21 mg/dL (7-18)
--- NOTE | 2017-11-21 06:45 | NUR ---
CERTIFIED ENDOSCOPY TECHNICIAN CLOSING NOTES PATIENT IN BED AWAKE, ALERT AND VERBALLY RESPONSIVE, RESPIRATIONS EVEN AND UNLABORED. WITH EQUAL RISE AND FALL OF CHEST, IV SITE TO RIGHT HAND AND LEFT AC INTACT AND PATENT, NO REDNESS NO INFILTRATION PRESENT, DENIES ANY PAIN OR DISCOMFORT AT THIS TIME, NO CHANGE NOTED SINCE ADMISSION. ASSISTED TO THE BR ABLE TO WALK WITH ASSISTANCE, ALL NEEDS ATTENDED PATIENT LEFT COMFORTABLE AT THIS TIME, CALL LIGHT KEPT WITHIN REACH, CALL ALARM ON WILL CONTINUE TO MONITOR AND ENDORSE TO NEXT SHIFT.
[2017-11-21 07:06] LABS: INR 0.94 (0.87-1.13)
[2017-11-21] MEDS ORDERED: LEVOTHYROXINE SODIUM 25 MCG TABLET PO SCH (07:30)
[2017-11-21] MEDS ORDERED: PANTOPRAZOLE 40 MG TABLET.DR PO SCH (07:30)
--- NOTE | 2017-11-21 07:35 | NUR ---
Tele/RN - Assessment Patient in bed awake, A/O x 4, speech clear, denies pain, not in any form of distress, able to move all extremities with no weakness, strong hand supervisor underwriting clerks. Skin noted with bilateral breast fold and back rashes. Patient independent with bed mobility. Fall and aspiration precautions maintained. Instructed to call for any assistance. All needs attended and met. Daughter at bedside updated on plan of care. Will continue with current medical management.
[2017-11-21 08:00] VITALS: BP 164/84
[2017-11-21] MEDS ORDERED: BENAZEPRIL HCL 10 MG TABLET PO SCH (09:00)
[2017-11-21] MEDS ORDERED: METOPROLOL SUCCINATE 50 MG TAB.SR.24H PO SCH (09:00)
[2017-11-21] MEDS ORDERED: ASPIRIN EC 325 MG TABLET.DR PO SCH (09:00)
[2017-11-21] MEDS ORDERED: DOCUSATE SODIUM 100 MG CAPSULE PO SCH (09:00)
[2017-11-21] MEDS ORDERED: FENOFIBRATE NANOCRYS (145 MG) 145 MG TABLET PO SCH (09:00)
[2017-11-21] MEDS ORDERED: ASPIRIN EC 81 MG TABLET.DR PO SCH (09:00)
[2017-11-21] MEDS ORDERED: DONEPEZIL 5 MG TABLET PO SCH (09:00)
[2017-11-21] MEDS ORDERED: AMLODIPINE BESYLATE 5 MG TABLET PO SCH (09:00)
[2017-11-21] MEDS ORDERED: CEPH-570 PO (13:44)
[2017-11-21 16:00] VITALS: BP 150/77
--- NOTE | 2017-11-21 17:00 | NUR ---
Tele/RN - Notes Patient SR with BBB on the monitor, saline lock on the right hand and LAC removed with catheter tip intact, no redness, no swelling noted at the site. Awaiting grandson to pick-up the patient.
--- NOTE | 2017-11-21 17:45 | NUR ---
Tele/RN - Discharge Patient discharged home in stable condition, afebrile, denies any weakness, ambulatory with assit, no c/o pain, A/O x 4, speech clear. Reviewed discharge instructions with patient and grandson both verbalized full understanding of all teachings. Patient made aware that she has an appt with [facility] tomorrow, 11/22/17 at 12:45 pm. Seek immediate medical attention for worsening symptoms, chest pain, shortness or breath, confusion, weakness, fatigue, dizziness, or any other emergent medical concern. All belongings with patient and she denies any missing items. Patient refused photos to be taken, no open wounds seen. Discharge papers signed and copy was given per protocol. Accompanied to the [facility] via wheelchair and transported via private car. Addendum: 11/21/17 at 1933 by BYRON ORDONEZ RN Amended for typo error: Tele/RN - Discharge Patient discharged home in stable condition, afebrile, denies any weakness, ambulatory with assist, no c/o pain, A/O x 4, speech clear. Reviewed discharge instructions with patient and grandson both verbalized full understanding of all teachings. Patient made aware that she has an appt with [facility] tomorrow, 11/22/17 at 12:45 pm. Seek immediate medical attention for worsening symptoms, chest pain, shortness or breath, confusion, weakness, fatigue, dizziness, or any other emergent medical concern. All belongings with patient and she denies any missing items. Patient refused photos to be taken, no open wounds seen. Discharge papers signed and copy was given per protocol. Accompanied to the lobby via wheelchair and transported via private car.
== END 2017-11-21 17:49 | disposition home or self-care (01) | DRG 69 ==
LOC: EDBD 16:30 → ER 16:30 → TELE 19:08
PROVIDERS: ADMIT Nurse Practitioner Acute Care; ATTEND Nurse Practitioner Acute Care
DX: G45.9 Transient cerebral ischemic attack, unspecified (principal); N17.0 Acute kidney failure with tubular necrosis; G92 Toxic encephalopathy; N39.0 Urinary tract infection, site not specified; E44.0 Moderate protein-calorie malnutrition; E03.9 Hypothyroidism, unspecified; E11.9 Type 2 diabetes mellitus without complications; I10 Essential (primary) hypertension; F03.90 Unspecified dementia, unspecified severity, without behavioral disturbance, psychotic disturbance, mood disturbance, and anxiety; Z86.73 Personal history of transient ischemic attack (TIA), and cerebral infarction without residual deficits; Z83.3 Family history of diabetes mellitus; Z98.890 Other specified postprocedural states; Z79.82 Long term (current) use of aspirin; Z79.4 Long term (current) use of insulin; Z79.899 Other long term (current) drug therapy; B96.89 Other specified bacterial agents as the cause of diseases classified elsewhere; E78.5 Hyperlipidemia, unspecified; E55.9 Vitamin D deficiency, unspecified; E66.9 Obesity, unspecified; F32.9 Major depressive disorder, single episode, unspecified; Z68.29 Body mass index [BMI] 29.0-29.9, adult; J45.909 Unspecified asthma, uncomplicated
CPT/HCPCS: 36415; 70450-TC; 70496-TC; 70498-TC; 71045-TC; 80048-TC; 80061-TC; 81000-TC; 82962-TC; 83880; 84443-TC; 84484-TC; 85025-TC; 85652-TC; 85730-TC; 87081-TC; 87086-TC; 92611-TC; A4216; A4606; J0696; J1815; J7050; Q9967; Z7610

== ENCOUNTER 2018-01-18 15:28 | Inpatient (IN) | payer MEDICARE, MEDICAID ==
[~2018-01-18] VITALS: Ht 160 cm; Wt 74.9 kg
[~2018-01-18 15:28] MED LIST changes: -ATOR10TA PO; -BENA20TA9 PO; +CEPH-570 PO; -CITA20TA16 PO; +DEXL60CA3 PO; +DONE5TAB34 PO; -ERGO500014 PO; -ESOM40CA PO; +FAMO40TA7 PO; +FENO134C PO; +LEVO25TA9 PO; -LEVO50TA8 PO; +LINA290C PO; -MECL-102 PO
--- NOTE | 2018-01-18 15:35 | NUR ---
[id number] FROM HOME: SLURRED SPEECH SINCE 1430, RESOLVED AT 1455. Hx OF TIA. PT AAOX4. MD AT BS FOR EVAL. VSS. IV ACCESS SUPERINTENDENT RECREATION. SAFETY AND COMFORT MEASURES PROVIDED. WILL MONITOR.
--- NOTE | 2018-01-18 15:57 | NUR ---
Note earl in EDM - 01/18/18 at 1559 by FLAVIO PT MEDICATED AGAIN WITH 4 MG OF MORPHINE SULFATE IVP. PT STS PAIN ONLY WENT DOWN TO 12/28 & IT WENT BACK TO 02/27. PT SPEAKING WITH DAUGHTERS, NO RESP DISTRESS NOTED & WILL CONT TO MONITOR.
--- NOTE | 2018-01-18 15:57 | NUR ---
AT WITH FAMILY MEMBERS.
[2018-01-18 16:03] LABS: BASOPHILS # (AUTO) 0.2 /CMM (0.0-0.2); BASOPHILS % (AUTO) 2.7 % (0.0-2.0); EOSINOPHILS % (AUTO) 2.7 % (0.0-6.0); HEMATOCRIT 41 % (33-45); HEMOGLOBIN 13.5 g/dL (11.5-14.8); LYMPHOCYTES % (AUTO) 22.3 % (20.0-44.0); MEAN CORPUSCULAR HGB CONC 33 g/dl (31.0-36.0); MEAN CORPUSCULAR VOLUME 87 fL (82-100); MONOCYTES # (AUTO) 0.7 /CMM (0.1-1.30); MONOCYTES % (AUTO) 7.8 % (2.0-12.0); NEUTROPHILS # (AUTO) 5.7 /CMM (1.8-8.9); NEUTROPHILS % (AUTO) 64.5 % (43.0-81.0); PLATELET COUNT (AUTO) 218 /CMM (150-450); RDW COEFFICIENT OF VARIATION 12.1 (11.5-15.0); RED BLOOD CELL COUNT(AUTO) 4.69 MIL/uL (4.0-5.2); WHITE BLOOD COUNT (AUTO) 8.8 K/uL (4.3-11.0)
[2018-01-18 16:14] LABS: CALCIUM, SERUM 9.1 mg/dL (8.5-10.1); CARBON DIOXIDE 30 mmol/L (21-32); CHLORIDE 104 mmol/L (98-107); CREATININE 1.5 mg/dL (0.6-1.3); GLUCOSE 127 mg/dL (74-106); POTASSIUM 4.3 mmol/L (3.5-5.1); SODIUM SERUM 140 mmol/L (136-145); UREA NITROGEN, BLOOD 20 mg/dL (7-18)
[2018-01-18 16:19] LABS: ALANINE AMINOTRANSFERASE 19 U/L (12-78); ALBUMIN 3.4 g/dL (3.4-5.0); ALKALINE PHOSPHATASE 87 U/L (46-116); ASPARTATE AMINOTRANSFERASE 17 U/L (15-37); BILIRUBIN,DIRECT 0.1 mg/dL (0.0-0.2); BILIRUBIN,TOTAL 0.4 mg/dL (0.2-1.0)
[2018-01-18 16:21] LABS: TROPONIN I < 0.017 ng/mL (0.00-0.056)
[2018-01-18 16:22] LABS: INR 0.97 (0.85-1.15)
[2018-01-18 16:47] LABS: CHOLESTEROL 155 mg/dL (<200); HDL CHOLESTEROL 38 mg/dL (40-60); LDL 84 mg/dL (0-99); TRIGLYCERIDES 245 mg/dL (30-150)
--- NOTE | 2018-01-18 17:06 | NUR ---
Bed 309-2
[2018-01-18 17:20] LABS: APPEARANCE,URINE Clear (CLEAR); BILIRUBIN,URINE Negative (NEGATIVE); BLOOD, URINE Negative Ery/uL (NEGATIVE); COLOR,URINE Yellow (YELLOW); KETONES,URINE Trace (NEGATIVE); LEUKOCYTE ESTERASE ,URINE Negative (NEGATIVE); NITRITE, URINE Negative (NEGATIVE); PH,URINE 5.5 (5.0-8.0); PROTEIN,URINE 30 mg/dl (NEGATIVE); UGLUCOSE Negative (NEGATIVE); UROBILINOGEN,URINE 0.2 EU/dL (0.2)
[2018-01-18 17:36] LABS: BACTERIA,URINE Few /HPF (None Seen); RBC,URINE 0-2 /HPF (0-2); SQUAMOUS EPITHELIAL CELL,UR Few /HPF (None Seen); WBC,URINE 0-2 /HPF (0-3)
--- NOTE | 2018-01-18 17:40 | NUR ---
YULY NO BS FOR EVAL.
[2018-01-18] MEDS ORDERED: ASPIRIN 81 MG TAB.CHEW PO ONE (18:00)
--- NOTE | 2018-01-18 18:15 | NUR ---
REPORT GIVEN TO DEVEN BURCH FOR TELE 309-2.
[2018-01-18] MEDS ORDERED: ASPIRIN 81 MG TAB.CHEW ONE (18:17)
--- NOTE | 2018-01-18 18:30 | NUR ---
RN NOTES RECEIVED PT FROM ER VIA [facility] HYDE NOEL NUNEZ CLEANING SUPERVISOR TO PLACE ADMITTING ORDERS, TIE IN MACHINE OPERATOR PLACED PT WITH SINUS RHYTHM AT 83 HR. ORIENTED PT TO ROOM AND UNIT, WILL ENDORSE TO NEXT SHIFT FOR CONTINUITY OF CARE AND ADMISSION PROCESS
[2018-01-18] MEDS ORDERED: DEXTROSE 50%-WATER 50 ML DISP.SYRIN IV PRN (19:00)
--- NOTE | 2018-01-18 19:40 | NUR ---
DRYWALL CARRIER OPENING NOTES RECEIVED PT IN ROOM 309-2, RESTING IN BED IN SEMI READ POSITION. DENIES ANY CHEST PAIN, NO SOB, NO DISCOMFORT VERBALIZED @ THIS TIME. TELUGU SPEAKING WITH BASIC YORUBA SPEAKING. A & O X 4. ON TELE MONITORING WITH SR WITH BBB, HR 87. BODY CHECK DONE, PHOTOS TAKEN, PLACED IN THE CHART. ALL BELONGINGS ACCOUNTED FOR & DOCUMENTED BY EMPLOYEE RELATIONS MANAGER. HAD UPPER & LOWER DENTURES, REFUSES TO TAKE THEM OUT @ ALL. CONTINENT OF B & BM. IV ACCESS TO LFA G 20, INTACT PATENT, SL @ THIS TIME. NEURO ASSESSMENT DONE, NOTED WITH FREDY LOWER EXT WEAKNESS, NO FACIAL DROOPING, NO SLURRED SPEECH, HAS GOOD CALENDERER OF FREDY HANDS & ABLE TO HOLD HER ARMS UP WITHOUT DRIFTING. SWALLOW EVAL DONE, NO S/S OF ASPIRATION NOTED. HAD 1 CUP OF WATER, TOLERATED WELL WITHOUT COUGHING, GURGLING AFTER NEURO ASSESSMENT WAS DONE. SAFETY MEASURES IN PLACE. INSTRUCTED THE PT TO CALL FOR HELP IF NEED TO GET OUT OF BED, VERBALIZED UNDERSTANDING. BED ALARM ON. CALL LIGHT WITHIN REACH. BED IN LOW LOCKED POSITION. WILL CONTINUE TO MONITOR CLOSELY.
[2018-01-18 20:00] VITALS: BP 115/70
[2018-01-18] MEDS: BLOOD SUGAR DIAGNOSTIC 1 EACH STRIP IN SCH (21:30)
[2018-01-18] MEDS ORDERED: INSULIN GLARGINE, 100 UNIT/ML CARTRIDGE SQ SCH (22:00)
[2018-01-18] MEDS ORDERED: BLOOD SUGAR DIAGNOSTIC 1 EACH STRIP IN SCH (22:00)
--- NOTE | 2018-01-18 22:49 | NUR ---
HELD LANTUS PATIENT'S BS IS 134MG/DL & SHE REFUSED TO EAT A SNACK. LANTUS HELD TO PREVENT HYPOGLYCEMIA. WILL MONITOR CLOSELY.
[2018-01-18] MEDS: INSULIN REGULAR, HUMAN 100 UNIT/ML 3 ML VIAL SQ PRN (22:51)
--- NOTE | 2018-01-18 22:52 | NUR ---
REFUSED SSI PT'S BS IS 134, OFFERED HER SNACK BUT REFUSED TO EAT @ THIS TIME. 2 UNITS OF REGULAR INSULIN NEEDS TO BE GIVEN BUT PT REFUSED SAYING THAT SHE KNOWS HER BODY, SHE FEELS FINE & DOES NOT NEED INSULIN. WILL TAKE INSULIN IF HER BS IS HIGHER IN AM. MONITORING CLOSELY.
[2018-01-19] VITALS: BP 121/68
[2018-01-19] MEDS ORDERED: BLOOD SUGAR DIAGNOSTIC 1 EACH STRIP IN SCH
[2018-01-19 04:00] VITALS: BP 141/68
[2018-01-19 06:43] LABS: BASOPHILS % (AUTO) 0.3 % (0.0-2.0); EOSINOPHILS % (AUTO) 3.6 % (0.0-6.0); HEMATOCRIT 40 % (33-45); HEMOGLOBIN 12.9 g/dL (11.5-14.8); LYMPHOCYTES # (AUTO) 1.8 /CMM (0.8-4.8); LYMPHOCYTES % (AUTO) 22.8 % (20.0-44.0); MEAN CORPUSCULAR HGB CONC 33 g/dl (31.0-36.0); MEAN CORPUSCULAR VOLUME 90 fL (82-100); MONOCYTES # (AUTO) 0.5 /CMM (0.1-1.30); MONOCYTES % (AUTO) 6.5 % (2.0-12.0); NEUTROPHILS # (AUTO) 5.2 /CMM (1.8-8.9); NEUTROPHILS % (AUTO) 66.8 % (43.0-81.0); PLATELET COUNT (AUTO) 188 /CMM (150-450); RDW COEFFICIENT OF VARIATION 13.1 (11.5-15.0); RED BLOOD CELL COUNT(AUTO) 4.41 MIL/uL (4.0-5.2); WHITE BLOOD COUNT (AUTO) 7.8 K/uL (4.3-11.0)
[2018-01-19 06:51] LABS: CALCIUM, SERUM 8.6 mg/dL (8.5-10.1); CARBON DIOXIDE 29 mmol/L (21-32); CHLORIDE 102 mmol/L (98-107); CREATININE 1.1 mg/dL (0.6-1.3); GLUCOSE 258 mg/dL (74-106); POTASSIUM 4.2 mmol/L (3.5-5.1); SODIUM SERUM 137 mmol/L (136-145); UREA NITROGEN, BLOOD 19 mg/dL (7-18)
--- NOTE | 2018-01-19 06:55 | NUR ---
HULL GRINDER CLOSING NOTES PT SLEPT WELL @ NIGHT. DENIES ANY CHEST PAIN, NO SOB, NO DISCOMFORT VERBALIZED @ NIGHT.ICELANDIC SPEAKING WITH BASIC PAKISTANI SPEAKING. A & O X 4. ON TELE MONITORING WITH SR WITH BBB, HR 70. CONTINENT OF B & BM. BRP WITH ASSIST ONLY. IV ACCESS TO LFA G 20, INTACT PATENT, SL. NEURO ASSESSMENT DONE, NOTED WITH FREDY LOWER EXT WEAKNESS, NO FACIAL DROOPING, NO SLURRED SPEECH, HAS GOOD INVENTORY CONTROL ANALYST OF FREDY HANDS & ABLE TO HOLD HER ARMS UP WITHOUT DRIFTING. SAFETY MEASURES IN PLACE. INSTRUCTED THE PT TO CALL FOR HELP IF NEED TO GET OUT OF BED, VERBALIZED UNDERSTANDING. BED ALARM ON. CALL LIGHT WITHIN REACH. BED IN LOW LOCKED POSITION. WILL ENDORSE TO AM RN FOR CONTINUITY OF CARE.
[2018-01-19 07:00] LABS: CHOLESTEROL 154 mg/dL (<200); HDL CHOLESTEROL 30 mg/dL (40-60); LDL 84 mg/dL (0-99); TRIGLYCERIDES 278 mg/dL (30-150)
[2018-01-19] MEDS: BLOOD SUGAR DIAGNOSTIC 1 EACH STRIP IN SCH ×2 (07:01→11:57)
[2018-01-19 07:06] LABS: INR 0.95 (0.87-1.13)
--- NOTE | 2018-01-19 07:15 | NUR ---
RN NOTES PT IS SITTING UP IN BED, AWAKE AND ALERT. PT ON RA, RESPIRATIONS ARE EVEN AND UNLABORED. IV ON LFA INTACT AND SL. PT HAS CLEAR SPEECH, ABLE TO AMBULATE WITH ONE PERSON ASSIST. TELE MONITOR SHOWS SR IN THE 80S. NO SIGNS OF DISTRESS NOTED, SAFETY MEASURES ARE IN PLACE, CALL LIGHT IS IN REACH. WILL CONTINUE TO MONITOR.
[2018-01-19] MEDS ORDERED: LEVOTHYROXINE SODIUM 25 MCG TABLET PO SCH (07:30)
[2018-01-19] MEDS: INSULIN REGULAR, HUMAN 100 UNIT/ML 3 ML VIAL SQ PRN ×2 (07:56→11:59)
[2018-01-19 08:00] VITALS: BP 138/73
[2018-01-19] MEDS ORDERED: ASPIRIN 81 MG TAB.CHEW PO SCH (09:00)
[2018-01-19] MEDS ORDERED: DONEPEZIL 5 MG TABLET PO SCH (09:00)
[2018-01-19] MEDS ORDERED: METOPROLOL SUCCINATE 50 MG TAB.SR.24H PO SCH (09:00)
[2018-01-19] MEDS ORDERED: FENOFIBRATE NANOCRYS (145 MG) 145 MG TABLET PO SCH (09:00)
[2018-01-19] MEDS ORDERED: HYDROCODONE/APAP 5/325MG 1 EACH TABLET PO PRN (09:00)
--- NOTE | 2018-01-19 09:30 | NUR ---
RN NOTES PT STATED THAT SHE WAS IN PAIN. PER PATIENTS DAUGHTER, DOES NOT WANT HER TO TAKE NORCO DUE TO AN ALLERGY. YULY MENDOZA SKI LIFT MECHANIC MADE AWARE. TELEPHONE ORDER FOR ADVIL 200MG Q6HRS. WILL ADMINISTER WHEN VERIFIED AND MONITOR FOR EFFECTIVENESS.
[2018-01-19] MEDS ORDERED: IBUPROFEN 200 MG TABLET PO PRN (10:00)
[2018-01-19 12:00] VITALS: BP 127/71
--- NOTE | 2018-01-19 16:10 | NUR ---
RN NOTES PT WAS DISCHARGED HOME IN STABLE CONDITION, ACCOMPANIED BY HER FAMILY. IV AND ID BAND WERE REMOVED. PT PROVIDED WITH DISCHARGE INSTRUCTIONS AND EDUCATION. PT VERBALIZED UNDERSTANDING AND STATED SHE WOULD F/U WITH HER PCP WITHIN 1-2 WEEKS. DISCHARGE PAPERS AND BELONGINGS LIST WERE SIGNED. PT WAS DISCHARGED WITH ALL OF HER BELONGINGS. PT WAS TRANSPORTED TO THE [facility] IN WHEELCHAIR, ACCOMPANIED BY TATTOOER AND FAMILY TO PRIVATE CAR.
[2018-01-19] MEDS ORDERED: ATORVASTATIN 10 MG TABLET PO SCH (22:00)
[2018-01-20] MEDS ORDERED: ASPIRIN 325 MG TABLET PO SCH (09:00)
== END 2018-01-19 16:10 | disposition home or self-care (01) | DRG 69 ==
LOC: ER 15:31 → TELE 17:58
PROVIDERS: ADMIT Nurse Practitioner Acute Care; ATTEND Nurse Practitioner Acute Care
DX: G45.9 Transient cerebral ischemic attack, unspecified (principal); N17.0 Acute kidney failure with tubular necrosis; E44.1 Mild protein-calorie malnutrition; E78.5 Hyperlipidemia, unspecified; I12.9 Hypertensive chronic kidney disease with stage 1 through stage 4 chronic kidney disease, or unspecified chronic kidney disease; N18.9 Chronic kidney disease, unspecified; Z86.73 Personal history of transient ischemic attack (TIA), and cerebral infarction without residual deficits; E11.22 Type 2 diabetes mellitus with diabetic chronic kidney disease; E03.9 Hypothyroidism, unspecified; Z79.4 Long term (current) use of insulin; Z79.84 Long term (current) use of oral hypoglycemic drugs; Z79.899 Other long term (current) drug therapy; R47.1 Dysarthria and anarthria; E78.1 Pure hyperglyceridemia; Z68.29 Body mass index [BMI] 29.0-29.9, adult; K58.9 Irritable bowel syndrome, unspecified; E55.9 Vitamin D deficiency, unspecified; E66.9 Obesity, unspecified; F32.9 Major depressive disorder, single episode, unspecified; H54.7 Unspecified visual loss; I08.0 Rheumatic disorders of both mitral and aortic valves
CPT/HCPCS: 36415; 70450-TC; 71045-TC; 80048-TC; 80061-TC; 80076-TC; 81000-TC; 82962-TC; 83605-TC; 83880; 84484-TC; 85025-TC; 85652-TC; 85730-TC; 87040-TC; 87081-TC; 87086-TC; A4606; J1815; Z7610

== ENCOUNTER 2018-04-17 17:30 | Emergency (ER) | payer MEDICARE, MEDICAID ==
[~2018-04-17] VITALS: Ht 157.5 cm; Wt 81.6 kg
[~2018-04-17 17:30] MED LIST changes: -CEPH-570 PO
--- NOTE | 2018-04-17 17:55 | NUR ---
BIB SELF, W C/O SHARP PAIN AT L LOWER EXTREMITY, HAS HX OF THROMBOSIS, TO ER BED 2, HOOKED TO MONITOR, AWAITING MD NOLASCO
[2018-04-17] MEDS ORDERED: HYDROCODONE/APAP 5/325MG 1 EACH TABLET PO ONE (18:30)
--- NOTE | 2018-04-17 19:00 | NUR ---
JAI SHRESTHA AT BEDSIDE
--- NOTE | 2018-04-17 19:14 | NUR ---
ENDORSEMENT GIVEN TO JAMES BURCH
--- NOTE | 2018-04-17 19:20 | NUR ---
Pt c/o pain on her rt ankle, appears anxious. Left foot looks red. Daughters at BS.
[2018-04-17 19:52] VITALS: BP 156/81
--- NOTE | 2018-04-17 19:53 | NUR ---
Patient discharged to home in stable condition. Written and verbal after care instructions and prescription given. Patient verbalizes understanding of instruction.Pt ambulatory with a steady gait
[2018-04-24] MEDS ORDERED: HYDROCODONE/APAP 5/325MG 1 EACH TABLET PO PRN ×2 (12:00)
== END 2018-04-17 19:53 | disposition home or self-care (01) ==
LOC: ER 17:41
DX: M25.571 Pain in right ankle and joints of right foot (principal); I10 Essential (primary) hypertension; E11.9 Type 2 diabetes mellitus without complications; Z98.890 Other specified postprocedural states; Z79.4 Long term (current) use of insulin; Z79.82 Long term (current) use of aspirin; Z86.73 Personal history of transient ischemic attack (TIA), and cerebral infarction without residual deficits
CPT/HCPCS: 73600-TC; 93971-TC; A4606; Z7610